=== PATIENT | female | born 1960 | race Caucasian/White ===

== ENCOUNTER 2020-09-12 14:48 | Observation (INO) | payer BC ==
[2020-09-12] MEDS ORDERED: Sodium Chloride 0.9% 10 ML Syringe FLUSH PRN ×2 (14:55→16:10)
[2020-09-12] MEDS ORDERED: Aspirin 81 MG Tab.Chew CHEW ONE (14:55)
[2020-09-12] MEDS ORDERED: Metoprolol Tartrate 5 MG/5 ML SDV IVPUSH ONE (14:55)
[2020-09-12] MEDS ORDERED: Famotidine 20 MG/2 ML SDV IVPUSH ONE (14:55)
[2020-09-12] MEDS ORDERED: Ticagrelor 90 MG Tab PO ONE (14:55)
--- NOTE | 2020-09-12 14:55 | EDM.PDOC ---
ED HPI GENERAL MEDICAL PROBLEM - General Chief Complaint: Chest Pain Stated Complaint: left arm pain, racing heart Time Seen by Provider: 09/12/20 14:54 Source of Information: Reports: Patient, Old Records ([facility] chart/EMR) History Limitations: Reports: No Limitations - History of Present Illness INITIAL COMMENTS - FREE TEXT/NARRATIVE: The patient drove herself to the emergency room for evaluation of nonspecific episode of heart flutter associated with some dyspnea and generalized nonspecific weakness with symptoms starting at about 2:15 PM today with similar type symptoms yesterday afternoon. Her symptoms lasted about 10-15 minutes on each occasion. The patient denies any chest pain/pressure, dizziness, orthostasis, orthopnea, diaphoresis, paresthesias, recent decreased exercise tolerance, or any other anginal-type symptoms. No recent history of abdominal pain, heartburn, nausea, diarrhea, melena, gross hematochezia, or any food intolerance, including fatty foods, etc. with normal bowel movement earlier this morning. She denies any gross hematuria, colic, or other UTI symptoms. The patient also denies any recent fever, cough, wheezing, dyspnea, etc.. She did have a negative COVID-19 screen on 09/09 with a repeat evaluation earlier today with these results still pending. She denies any specific pain or discomfort. Onset: Today, Sudden, Gradual Onset Date: 09/12/20 Onset Time: 14:15 Duration: Resolved Prior to Arrival Location: Reports: Upper Extremity, Left (Nonspecific weakness), Other (No pain). Denies: Head, Face, Neck, Chest, Abdomen, Back, Upper Extremity, Right, Radiates to Quality: Reports: Same as Previous Episode (Yesterday afternoon) Severity: Moderate Improves with: Reports: None Worsens with: Reports: None Associated Symptoms: Reports: Shortness of Breath, Weakness. 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 (see below) - Related Data Allergies Allergy/AdvReac Type Severity Reaction Status Date / Time No Known Allergies Allergy Verified 09/12/20 14:55 Home Meds: Home Meds Cyclobenzaprine [Flexeril] 10 mg PO TID PRN 12/09/13 [History] Sertraline [Zoloft] 50 mg PO DAILY 12/09/13 [History] atorvaSTATin [Lipitor] 20 mg PO BEDTIME 12/09/13 [History] Alendronate Sodium [Fosamax] 70 mg PO WEEKLY 09/12/20 [History] Cholecalciferol (Vitamin D3) [Vitamin D3] 1,000 unit PO DAILY 09/12/20 [History] Meloxicam 15 mg PO DAILY 09/12/20 [History] Omeprazole 20 mg PO DAILY 09/12/20 [History] Vitamin B Complex 1 each PO DAILY 09/12/20 [History] hydroCHLOROthiazide [Hydrochlorothiazide] 25 mg PO DAILY 09/12/20 [History] predniSONE [Prednisone] 20 mg PO DAILY 09/12/20 [History] Past Medical History HEENT History: Reports: Allergic Rhinitis, Impaired Vision, Sinusitis, Other (See Below). Denies: Cataract, Glaucoma, Hard of Hearing, Macular Degeneration, Otitis Media, Retinal Detachment Other HEENT History: Patient wears glasses. Cardiovascular History: Reports: High Cholesterol, Hypertension, Syncope, Other (See Below). Denies: Afib, Aneurysm, Arrhythmia, Blood Clots/VTE/DVT, CAD, Cardiomyopathy, Heart Failure, Heart Murmur, VA, PVD Other Cardiovascular History: Mild left ventricular hypertrophy and left atrial enlargement by echocardiogram as above. History of syncopal episodes x2 with borderline EEG indicative of possible metabolic encephalopathy with no history of true seizures, etc. Note negative work-up in 2010 as below. Respiratory History: Reports: None. Denies: Asthma, Bronchitis, Recurrent, COPD, Intubation, Difficult, Intubation, Previous, PE, Pneumonia, Recurrent, Pneumothorax, Sleep Apnea, TB Gastrointestinal History: Reports: GERD. Denies: Celiac Disease, Cholelithiasis, Chronic Constipation, Chronic Diarrhea, Colon Polyp, Fecal Incontinence, Gastritis, GI Bleed, Hepatitis, Inflammatory Bowel Disease, Irritable Bowel Syndrome, Jaundice, PUD Genitourinary History: Reports: None. Denies: Acute Renal Failure, Chronic Renal Insuffiency, Renal Calculus, Retention, Urinary, STD, Urinary Incontinence, UTI, Recurrent STEERER History: Reports: . Denies: Dysfunctional Uterine Bleeding, Endometriosis, Fibroids, Spontaneous : 3 Para: 3 LMP (Approximate): Other (See Below) Other STEERER History: Full term without complications during pregnancies or deliveries. Menopause at about age 55. Musculoskeletal History: Reports: Arthritis, Back Pain, Chronic, Fracture, Neck Pain, Chronic, Osteoarthritis, Osteoporosis, Other (See Below). Denies: Amputation, Gout, RA, SLE Other Musculoskeletal History: Possible incidental old right ulnar styloid fracture by x-ray, which the patient does not recall. Neurological History: Reports: Other (See Below). Denies: Cerebral Aneurysms, Concussion, CVA, Headaches, Chronic, Head Trauma, Migraines, MS, Neuropathy, Peripheral, Parkinson's, Seizure, TIA, Vertigo Other Neuro History: Borderline metabolic encephalopathy in 2011 with secondary syncope as above. Psychiatric History: Reports: Anxiety, Depression. Denies: Abuse, Victim of, ADD, ADHD, Addiction, Psych Hospitalization(s), PTSD, Suicide Attempt, Suicidal Ideation Endocrine/Metabolic History: Reports: Obesity/BMI 30+, Osteopenia, Osteoporosis, Other (See Below). Denies: Diabetes, Gestational, Diabetes, Type I, Diabetes, Type II, Diabetes Mellitus, Type 3c, Hypothyroidism, IDDM Other Endocrine/Metabolic History: History of thyroid nodules. Hematologic History: Reports: None. Denies: Anemia, Blood Transfusion(s), Iron Deficiency Immunologic History: Reports: None. Denies: AIDS, HIV, SLE Oncologic (Cancer) History: Reports: None. Denies: Basal Cell Carcinoma, Breast, Cervix, Colon, Hodgkin's Lymphoma, Leukemia, Lymphoma, Malignant Melanoma, Non-Hodgkin's Lymphoma, Ovarian, Squamous Cell Carcinoma, Thyroid, Uterine Dermatologic History: Reports: None. Denies: Eczema, Psoriasis - Infectious Disease History Infectious Disease History: Reports: Chicken Pox, Mumps. Denies: C-Difficile, Measles, Meningitis, Mononucleosis, MRSA, Novel Coronavirus, Pertussis (Whooping Cough), Rheumatic Fever, Rubella, Scarlet Fever, Shingles, TB, VRE - Past Surgical History Head Surgeries/Procedures: Reports: None HEENT Surgical History: Reports: Oral Surgery, Other (See Below). Denies: Adenoidectomy, Cataract Surgery, Eye Surgery, Laser Surgery, LASIK, Myringotomy w Tube(s), Naso-Sinus Surgery, Tonsillectomy Other HEENT Surgeries/Procedures: Dental extractions. Cardiovascular Surgical History: Reports: None. Denies: Varicose Respiratory Surgical History: Reports: None. Denies: Thoracentesis GI Surgical History: Reports: Colonoscopy, Other (See Below). Denies: Appendectomy, Cholecystectomy, EGD, Hernia, Abdominal, Hernia, Inguinal, Hernia Repair/Other, Polypectomy Other GI Surgeries/Procedures: Normal colonoscopy on 12/10/2013. Female Surgical History: Reports: None. Denies: Breast Biopsy, Section, D&C, Hysterectomy, Oophorectomy, Salpingo-Oophorectomy, Tubal Ligation Endocrine Surgical History: Reports: None. Denies: Thyroid Biopsy Neurological Surgical History: Reports: None. Denies: C-Spine, Discectomy, Intracranial, Laminectomy, Lumbar Spine, Sacral Spine, Scoliosis, Thoracic Spine, Vertebroplasty Musculoskeletal Surgical History: Reports: None. Denies: Arthroscopic Procedure, Carpal Tunnel, Ganglion Cyst, Joint Replacement, ORIF, Shoulder Surgery Oncologic Surgical History: Reports: None Dermatological Surgical History: Reports: None - Past Imaging History Past Imaging History: Reports: Cardiac Echo (05/25/2011 with ejection fraction of 72% and findings as above.), Carotid US (Normal on 05/02/2011.), CAT Scan (Soft tissue CT scan of the neck on 07/23/2014. CTA of the chest on 07/15/2014. CT of the head on 05/01/2011.), DEXA Scan (Last on 08/15/2020.), EEG (Borderline EEG on 05/02/2011 with findings as above.), Mammogram (Last on 08/15/2020.), Ultrasound (OB ultrasounds. Thyroid ultrasound on 07/23/2014.) Social & Family History - Family History HEENT: Reports: Glaucoma, Other (See Below). Denies: Macular Degeneration, Retinal Detachment Other HEENT Family History: Maternal grandmother and father with glaucoma. Cardiac: Reports: CAD, Hypertension, VA, Other (See Below). Denies: Afib, Aneurysm, Arrhythmia, Blood Clots/VTE/DVT, Bypass, Heart Failure, Heart Murmur, High Cholesterol, PVD/COD, Syncope Other Cardiac Family History: Mother with hypertension. Father with fatal VA in his 70s. Respiratory: Reports: Asthma, COPD, Other (See Below). Denies: PE, Pneumothorax, Sleep Apnea Other Respiratory Family Hisory: Paternal grandfather with COPD with history of tobacco use. Father with possible asthma. Sister with asthma. GI: Reports: Colon Polyps, Other (See Below). Denies: Celiac Disease, Cholelithiasis, GERD, GI bleed, Inflammatory Bowel Disease, Irritable Bowel Syndrome, PUD Other GI Family History: Father with colon cancer as below. : Reports: None. Denies: Renal Calculus, Renal Disease/Insufficiency OBGYN: Reports: None. Denies: Endometriosis, Recurrent Spontaneous Musculoskeletal: Reports: None. Denies: Arthritis, Gout, Osteoarthritis, RA, SLE Neurological: Reports: Parkinson's, Other (See Below). Denies: Alzheimers Disease, Cerebral Aneurysms, CVA, Dementia, Migraines, MS, Seizure, TIA Other Neurological Family History: Father with Parkinson's disease. Psychiatric: Reports: None. Denies: Abuse, Victim of, ADD, ADHD, Anxiety, Depression, Psych Hospitalization(s), PTSD, Suicide Attempt Endocrine/Metabolic: Reports: None. Denies: Diabetes, Gestational, Diabetes, Type I, Diabetes, type II, Diabetes Mellitus, Type 3c, Hypothyroidism, IDDM Hematologic: Reports: None. Denies: Anemia, SLE Immunologic: Reports: None. Denies: AIDS, HIV, SLE Dermatologic: Reports: None. Denies: Eczema, Psoriasis Oncologic: Reports: Colon, Liver, Metastatic, Other (See Below). Denies: Breast, Cervix, Hodgkin's Lymphoma, Leukemia, Non-Hodgkin's Lymphoma, Ovarian, Skin, Uterine Other Oncologic Family History: Father with colon cancer in his 50s. Mother from metastatic cholangioadenocarcinoma of the hepatic ducts at about age 78. - Tobacco Use Tobacco Use Status *Q: Never Tobacco User Tobacco Use Within Last Twelve Months: No Used Tobacco, but Quit: No Smoking Cessation Information Provided To Patient: No Second Hand Smoke Exposure: No Second Hand Smoke Education Provided: No - Caffeine Use Caffeine Use: Reports: Soda (2 sodas per week). Denies: Coffee, Energy Drinks, Tea - Alcohol Use Alcohol Use History: No Days Per Week of Alcohol Use: 0 Number of Drinks Per Day: 0 Number of Drinks Per Day Comment: No previous DWIs, problems with alcohol abuse, etc. Total Drinks Per Week: 0 Alcohol Use in Last Twelve Months: No - Recreational Drug Use Recreational Drug Use: No Drug Use in Last 12 Months: No Recreational Drug Type: Denies: Amphetamines (Speed), Cocaine, Heroin, Inhalants (Glues, Solvents, Aerosols), LSD (Acid), Marijuana/Hashish, Methamphetamine, Morphine, Oxycodone - Living Situation & Occupation Living situation: Reports: (Second with no children from this relationship.), (First with 3 children from that relationship), with Family () Occupation: Employed ([employer]) ED ROS GENERAL - Review of Systems Review Of Systems: Comprehensive ROS is negative, except as noted in HPI. ED EXAM, GENERAL - Physical Exam Exam: See Below Exam Limited By: No Limitations General Appearance: Alert, WD/WN, No Apparent Distress, Anxious (Mild) Eye Exam: Bilateral Eye: EOMI, Normal Inspection (Patient is wearing glasses. No vertigo or nystagmus.), PERRL Ears: Normal External Exam, Normal Canal, Hearing Grossly Normal, Normal TMs Nose: Normal Inspection, Normal Mucosa, No Blood Throat/Mouth: Normal Inspection, Normal Lips, Normal Teeth, Normal Gums, Normal Oropharynx, Normal Voice, No Airway Compromise. No: Dysphagia, Perioral Cyanosis Head: Atraumatic, Normocephalic. No: Facial Swelling, Facial Tenderness, Sinus Tenderness Neck: Normal Inspection, Supple, Non-Tender, Full Range of Motion. No: Carotid Bruit, Lymphadenopathy (L), Lymphadenopathy (R), Thyromegaly Respiratory/Chest: No Respiratory Distress, Lungs Clear, Normal Breath Sounds, No Accessory Muscle Use, Chest Non-Tender. No: Pleural Rub, Retractions Cardiovascular: Normal Peripheral Pulses, Regular Rate, Rhythm, No Edema, No Gallop, No JVD, No Murmur, No Rub. No: Gallop/S3, Gallop/S4, Friction Rub Peripheral Pulses: 2+: Radial (L), Radial (R), Dorsalis Pedis (L), Dorsalis Pedis (R) GI/Abdominal: Normal Bowel Sounds, Soft, Non-Tender, No Organomegaly, No Distention, No Abnormal Bruit, No Mass, Pelvis Stable, Other (Obese). No: Guarding (Female) Exam: Deferred Rectal (Female) Exam: Deferred Back Exam: Normal Inspection, Full Range of Motion. No: CVA Tenderness (L), CVA Tenderness (R), Muscle Spasm Extremities: Normal Inspection, Normal Range of Motion, Non-Tender, No Pedal Edema, Normal Capillary Refill. No: Gena's Sign Neurological: Alert, Oriented, CN II-XII Intact, Normal Cognition, Normal Gait, Normal Reflexes (Negative Babinski's), No Motor/Sensory Deficits Psychiatric: Anxious (Mild). No: Depressed Mood Skin Exam: Warm, Dry, Intact, Normal Color, No Rash. No: Diaphoretic, Wound/Incision Lymphatic: No Adenopathy #1 Interpretation EKG Date: 09/12/20 Time: 14:55 Rhythm: NSR Rate (Beats/Min): 92 [place]: Normal (Neutral) P-Wave: Present QRS: Normal (0.08 seconds) ST-T: Other (T wave inversion in lead aVL and V1 with nonspecific ST changes) QT: Normal AL/PQ Interval: 0.17 seconds with poor R wave progression in the anterior leads Comparison: NA - No Prior EKG EKG Interpretation Comments: 1. No acute ischemic changes Course - Vital Signs Last Recorded V/S: Last Vital Signs Temp 36.2 C 09/12/20 14:52 Pulse 83 09/12/20 15:45 Resp 18 09/12/20 15:45 BP 124/88 09/12/20 15:45 Pulse Ox 93 L 09/12/20 15:45 Vital Signs - 24 hr 09/12/20 09/12/20 09/12/20 14:52 15:06 15:12 Temperature [ 36.2 C Temporal] Pulse, 95 Peripheral Pulse, 96 92 Peripheral [ Pulse Oximetry] Respiratory 14 17 Rate Blood Pressure 142/88 H Blood Pressure 150/93 H 142/88 H [Right Upper Arm] O2 Sat by Pulse 95 93 L Oximetry 09/12/20 09/12/20 09/12/20 15:15 15:30 15:45 Temperature [ Temporal] Pulse, Peripheral Pulse, 78 81 83 Peripheral [ Pulse Oximetry] Respiratory 14 18 18 Rate Blood Pressure Blood Pressure 137/87 125/81 124/88 [Right Upper Arm] O2 Sat by Pulse 93 L 94 L 93 L Oximetry - Orders/Labs/Meds Orders: Active Orders 24 hr Category Date Time Status Cardiac Monitoring [RC] . DIRECTED Care 09/12/20 14:55 Active EKG Documentation Completion [RC] ASDIRECTED Care 09/12/20 14:55 Active Oxygen Therapy, ED [RC] PRN Care 09/12/20 14:55 Active Peripheral IV Care [RC] . DIRECTED Care 09/12/20 14:55 Active Pulse Oximetry [RC] CONTINUOUS Care 09/12/20 14:55 Active Up With Assistance [RC] PFP Care 09/12/20 14:55 Active Vital Signs [RC] PFP Care 09/12/20 14:55 Active Nothing per Oral Now Diet [DIET] Diet 09/12/20 Breakfast Active Chest 1V Frontal [CR] Stat Exams 09/12/20 14:55 Ordered Sodium Chloride 0.9% [Saline Flush] Med 09/12/20 14:55 Active 10 ml FLUSH ASDIRECTED PRN Obtain Past Medical Record [OM.PC] Urgent Oth 09/12/20 14:55 Active Peripheral IV Insertion Adult [OM.PC] Stat Oth 09/12/20 14:55 Ordered Resuscitation Status Stat Resus Stat 09/12/20 14:55 Ordered Medication Orders Sodium Chloride (Saline Flush) 10 ml FLUSH ASDIRECTED PRN PRN Reason: Keep Vein Open Last Admin: 09/12/20 15:14 Dose: 10 ml Documented by: MAEN Labs: Laboratory Tests 09/12/20 09/12/20 09/12/20 Range/Units 15:05 15:05 15:05 WBC 10.4 H (4.0-10.2) K/uL RBC 4.45 (3.77-5.09) M/uL Hgb 12.7 (11.7-15.5) g/dL Hct 38.5 (34.0-46.0) % MCV 86.5 (84.0-98.0) fL MCH 28.5 (28.2-33.3) pg MCHC 33.0 (31.7-36.0) g/dL RDW 13.3 (11.2-14.1) % Plt Count 333 (150-350) K/uL Neut % (Auto) 68.3 (45.0-80.0) % Lymph % (Auto) 19.7 (10.0-50.0) % Parker % (Auto) 8.4 (2.0-14.0) % Eos % (Auto) 3.0 (0.0-5.0) % Baso % (Auto) 0.6 (0.0-2.0) % Neut # (Auto) 7.08 H (1.40-7.00) K/uL Lymph # (Auto) 2.04 (0.50-3.50) K/uL Parker # (Auto) 0.87 (0.00-1.00) K/uL Eos # (Auto) 0.31 (0.00-0.50) K/uL Baso # (Auto) 0.06 (0.00-0.20) K/uL PT 10.0 (9.5-12.0) SEC INR 1.0 APTT 26.1 (24.5-32.8) SEC D-Dimer, Quantitative 526 H (0-400) ng/mL Sodium (136-145) mmol/L Potassium (3.5-5.1) mmol/L Chloride (98-107) mmol/L Carbon Dioxide (21.0-32.0) mmol/L BUN (7-18) mg/dL Creatinine (0.51-1.17) mg/dL Est Cr Clr Drug Dosing mL/min Estimated GFR (MDRD) mL/min Glucose (74-106) mg/dL Lactic Acid (0.4-2.0) mmol/L Uric Acid (2.6-7.2) mg/dL Calcium (8.5-10.1) mg/dL Magnesium (1.8-2.4) mg/dL Total Bilirubin (0.2-1.0) mg/dL AST (15-37) U/L ALT (12-78) U/L Alkaline Phosphatase (46-116) IU/L Creatine Kinase (26-308) U/L Creatine Kinase Index (0.0-2.5) % CK-MB (CK-2) (0.00-3.60) ng/mL Troponin I (0.000-0.056) ng/mL NT-Pro-B Natriuret Pep (0-125) pg/mL Total Protein (6.4-8.2) g/dL Albumin (3.4-5.0) g/dL TSH, Ultra Sensitive (0.358-3.740) mIU/mL 09/12/20 09/12/20 Range/Units 15:05 15:05 WBC (4.0-10.2) K/uL RBC (3.77-5.09) M/uL Hgb (11.7-15.5) g/dL Hct (34.0-46.0) % MCV (84.0-98.0) fL MCH (28.2-33.3) pg MCHC (31.7-36.0) g/dL RDW (11.2-14.1) % Plt Count (150-350) K/uL Neut % (Auto) (45.0-80.0) % Lymph % (Auto) (10.0-50.0) % Parker % (Auto) (2.0-14.0) % Eos % (Auto) (0.0-5.0) % Baso % (Auto) (0.0-2.0) % Neut # (Auto) (1.40-7.00) K/uL Lymph # (Auto) (0.50-3.50) K/uL Parker # (Auto) (0.00-1.00) K/uL Eos # (Auto) (0.00-0.50) K/uL Baso # (Auto) (0.00-0.20) K/uL PT (9.5-12.0) SEC INR APTT (24.5-32.8) SEC D-Dimer, Quantitative (0-400) ng/mL Sodium 137 (136-145) mmol/L Potassium 3.8 (3.5-5.1) mmol/L Chloride 100 (98-107) mmol/L Carbon Dioxide 29.5 (21.0-32.0) mmol/L BUN 30 H (7-18) mg/dL Creatinine 1.02 (0.51-1.17) mg/dL Est Cr Clr Drug Dosing 45.81 mL/min Estimated GFR (MDRD) 55 mL/min Glucose 101 (74-106) mg/dL Lactic Acid 1.1 (0.4-2.0) mmol/L Uric Acid 4.5 (2.6-7.2) mg/dL Calcium 9.2 (8.5-10.1) mg/dL Magnesium 1.8 (1.8-2.4) mg/dL Total Bilirubin 0.6 (0.2-1.0) mg/dL AST 20 (15-37) U/L ALT 32 (12-78) U/L Alkaline Phosphatase 79 (46-116) IU/L Creatine Kinase 92 (26-308) U/L Creatine Kinase Index 2.2 (0.0-2.5) % CK-MB (CK-2) 2.00 (0.00-3.60) ng/mL Troponin I 0.000 (0.000-0.056) ng/mL NT-Pro-B Natriuret Pep 58 (0-125) pg/mL Total Protein 7.4 (6.4-8.2) g/dL Albumin 3.9 (3.4-5.0) g/dL TSH, Ultra Sensitive 2.135 (0.358-3.740) mIU/mL Meds: Medications Generic Name Dose Route Start Last Admin Trade Name Freq PRN Reason Stop Dose Admin Sodium Chloride 10 ml 09/12/20 14:55 09/12/20 15:14 Saline Flush FLUSH 10 ml ASDIRECTED PRN Administration Keep Vein Open Discontinued Medications Generic Name Dose Route Start Last Admin Trade Name Freq PRN Reason Stop Dose Admin Aspirin 324 mg 09/12/20 14:55 09/12/20 15:11 Aspirin CHEW 09/12/20 14:56 324 mg ONETIME ONE Administration Famotidine 40 mg 09/12/20 14:55 09/12/20 15:14 Pepcid IVPUSH 09/12/20 14:56 40 mg ONETIME ONE Administration Metoprolol Tartrate 2.5 mg 09/12/20 14:55 09/12/20 15:12 Lopressor IVPUSH 09/12/20 14:56 2.5 mg ONETIME ONE Administration Ticagrelor 180 mg 09/12/20 14:55 09/12/20 15:10 Brilinta PO 09/12/20 14:56 180 mg ONETIME ONE Administration - Radiology Interpretation Free Text/Narrative:: night monitor shows normal sinus rhythm with heart rate in the 80s to 90s with no ectopy or arrhythmia. Chest x-ray, portable, shows a somewhat poor inspiratory film with moderately elevated right hemidiaphragm and mild cardiomegaly with, however no CHF, pulmonary infiltrates, pneumothorax, etc. Departure - Departure Time of Disposition: 16:05 Disposition: Refer to Observation Condition: Good Clinical Impression: Atypical chest pain, Mixed anxiety depressive disorder, D-dimer, elevated Hypertension Qualifiers: Hypertension type: essential hypertension Qualified Code(s): I10 - Essential (primary) hypertension Hyperlipidemia Qualifiers: Hyperlipidemia type: unspecified Qualified Code(s): E78.5 - Hyperlipidemia, unspecified Osteoarthritis Qualifiers: Osteoarthritis location: multiple joints Osteoarthritis type: primary Qualified Code(s): M89.49 - Other hypertrophic osteoarthropathy, multiple sites Sepsis Event Note (ED) - Focused Exam Vital Signs: Vital Signs Temp Pulse Pulse Resp BP BP Pulse Ox 09/12/20 15:45 83 18 124/88 93 L 09/12/20 15:30 81 18 125/81 94 L 09/12/20 15:15 78 14 137/87 93 L 09/12/20 15:12 95 142/88 H 09/12/20 15:06 92 17 142/88 H 93 L 09/12/20 14:52 36.2 C 96 14 150/93 H 95 - Problem List & Annotations (1) Atypical chest pain SNOMED Code(s): 400534806 Code(s): R07.89 - OTHER CHEST PAIN Status: Acute Priority: High Current Visit: Yes Onset Date: 09/11/20 Annotation/Comment:: Recurrent atypical type of cardiac type symptoms with chest pain protocol initiated immediately upon patient's arrival to the emergency room. She is also suffering from chronic fatigue, however denies recent decreased exercise tolerance. Note negative COVID-19 evaluations to this point. Her TSH is normal. Initiate standard rule out VA orders with cardiology consultation depending on her clinical course. Patient should be scheduled for a Cardiolite stress test FAYE with activity restrictions until her cardiac status has been determined. (2) D-dimer, elevated SNOMED Code(s): 739519483 Code(s): R79.89 - OTHER SPECIFIED ABNORMAL FINDINGS OF BLOOD CHEMISTRY Status: Acute Priority: High Current Visit: Yes Onset Date: 09/12/20 Annotation/Comment:: Venous Doppler studies to be conducted in this facility [facility]. D-dimer is less than 1000 with no clinical evidence of PE, however consider CTA of the chest depending on her clinical course. Subcutaneous Lovenox for now. (3) Hyperlipidemia SNOMED Code(s): 69227270 Code(s): E78.5 - HYPERLIPIDEMIA, UNSPECIFIED Status: Chronic Priority: Medium Current Visit: Yes Annotation/Comment:: Lipid panel and glycosylated hemoglobin in the a.m. Qualifiers: Hyperlipidemia type: unspecified Qualified Code(s): E78.5 - Hyperlipidemia, unspecified (4) Hypertension SNOMED Code(s): 81865787 Code(s): I10 - ESSENTIAL (PRIMARY) HYPERTENSION Status: Chronic Priority: Medium Current Visit: Yes Annotation/Comment:: Blood pressure somewhat elevated in the emergency room. Mild anxious affect. Continue to observe closely during this hospitalization with medication adjustment depending on her clinical course. Qualifiers: Hypertension type: essential hypertension Qualified Code(s): I10 - Essential (primary) hypertension (5) Mixed anxiety depressive disorder SNOMED Code(s): 541563060 Code(s): F41.8 - OTHER SPECIFIED ANXIETY DISORDERS Status: Chronic Priority: Medium Current Visit: Yes Annotation/Comment:: Moderate control based on today's exam. Continue to observe closely by her regular providers. (6) Osteoarthritis SNOMED Code(s): 266483101 Code(s): M19.90 - UNSPECIFIED OSTEOARTHRITIS, UNSPECIFIED SITE Status: Chronic Priority: Medium Current Visit: Yes Annotation/Comment:: Stable by patient history Qualifiers: Osteoarthritis location: multiple joints Osteoarthritis type: primary Qualified Code(s): M89.49 - Other hypertrophic osteoarthropathy, multiple sites - Problem List Review Problem List Initiated/Reviewed/Updated: Yes - My Orders Last 24 Hours: My Active Orders 09/12/20 Breakfast Nothing per Oral Now Diet [DIET] 09/12/20 14:55 Cardiac Monitoring [RC] . DIRECTED EKG Documentation Completion [RC] ASDIRECTED Oxygen Therapy, ED [RC] PRN Peripheral IV Care [RC] . DIRECTED Pulse Oximetry [RC] CONTINUOUS Up With Assistance [RC] PFP Vital Signs [RC] PFP Chest 1V Frontal [CR] Stat Sodium Chloride 0.9% [Saline Flush] 10 ml FLUSH ASDIRECTED PRN Obtain Past Medical Record [OM.PC] Urgent Peripheral IV Insertion Adult [OM.PC] Stat Resuscitation Status Stat - Assessment/Plan Admission H&P: Please use this note as an admission H&P Last 24 Hours: My Active Orders 09/12/20 Breakfast Nothing per Oral Now Diet [DIET] 09/12/20 14:55 Cardiac Monitoring [RC] . DIRECTED EKG Documentation Completion [RC] ASDIRECTED Oxygen Therapy, ED [RC] PRN Peripheral IV Care [RC] . DIRECTED Pulse Oximetry [RC] CONTINUOUS Up With Assistance [RC] PFP Vital Signs [RC] PFP Chest 1V Frontal [CR] Stat Sodium Chloride 0.9% [Saline Flush] 10 ml FLUSH ASDIRECTED PRN Obtain Past Medical Record [OM.PC] Urgent Peripheral IV Insertion Adult [OM.PC] Stat Resuscitation Status Stat Assessment:: As above Plan: As above. Extensive precautions were given to the patient, who is in agreement with the treatment plan. The patient's condition is stable enough for observation status and general supervision. [facility] physician assumes care in the a.m.
[2020-09-12 15:29] LABS: PTT,PARTIAL THROMBOPLSTIN TIME 26.1 SEC (24.5-32.8)
[2020-09-12] MEDS ORDERED: Temazepam 15 MG Cap PO PRN (16:10)
[2020-09-12] MEDS ORDERED: Acetaminophen 325 MG Tab PO PRN (17:00)
[2020-09-12] MEDS ORDERED: Enoxaparin 40 MG/0.4 ML Syringe SUBCUT SCH (18:00)
[2020-09-12] MEDS ORDERED: atorvaSTATin 10 MG Tab PO SCH (20:00)
[2020-09-13] MEDS ORDERED: Sertraline 50 MG Tab PO SCH (08:00)
[2020-09-13] MEDS ORDERED: Cholecalciferol (Vitamin D3) 25 MCG Tab PO SCH (08:00)
[2020-09-13] MEDS ORDERED: Hydrochlorothiazide 25 MG Tab PO SCH (08:00)
[2020-09-13] MEDS ORDERED: predniSONE 20 MG Tab PO SCH (08:00)
[2020-09-13] MEDS ORDERED: Omeprazole 20 MG Cap.CR PO SCH (08:00)
[2020-09-13 08:05] LABS: HEMOGLOBIN A1C 6.1 % (4.3-5.7)
[2020-09-13 08:33] LABS: CHLORIDE,CL 103 mmol/L (98-107); SODIUM,NA 140 mmol/L (136-145)
--- NOTE | 2020-09-13 09:16 | PCM.DCSUM1 ---
Discharge Summary - Hospital Course Free Text/Narrative:: Pt without complaint Venous doppler completed and negative for DVT Diagnosis: Stroke: No - Discharge Data Discharge Date: 09/13/20 Discharge Disposition: Home, Self-Care 01 Condition: Good - Referral to Home Health Primary Care Physician: Rebeka Ley PA-C - Discharge Diagnosis/Problem(s) (1) Atypical chest pain SNOMED Code(s): 650751772 ICD Code: R07.89 - OTHER CHEST PAIN Status: Acute Priority: High Current Visit: Yes Onset Date: 09/11/20 Problem Details: Recurrent atypical type of cardiac type symptoms with chest pain protocol initiated immediately upon patient's arrival to the emergency room. She is also suffering from chronic fatigue, however denies recent decreased exercise tolerance. Note negative COVID-19 evaluations to this point. Her TSH is normal. Initiate standard rule out [place] orders with cardiology consultation depending on her clinical course. Patient should be scheduled for a Cardiolite stress test FAYE with activity restrictions until her cardiac status has been determined. Pt currently asymptomatic (2) D-dimer, elevated SNOMED Code(s): 023127350 ICD Code: R79.89 - OTHER SPECIFIED ABNORMAL FINDINGS OF BLOOD CHEMISTRY Status: Acute Priority: High Current Visit: Yes Onset Date: 09/12/20 Problem Details: Venous Doppler studies to be conducted in this facility [facility]. D-dimer is less than 1000 with no clinical evidence of PE, however consider CTA of the chest depending on her clinical course. Subcutaneous Lovenox for now. Venous doppler completed and negative for DVT - Patient Instructions Diet: Regular Diet as Tolerated Activity: As Tolerated Notify Provider of: Increased Pain - Discharge Plan *PRESCRIPTION DRUG MONITORING PROGRAM REVIEWED*: Not Applicable *COPY OF PRESCRIPTION DRUG MONITORING REPORT IN PATIENT FAMILIA: Not Applicable Home Medications: Home Meds Cyclobenzaprine [Flexeril] 10 mg PO TID PRN 12/09/13 [History] Sertraline [Zoloft] 50 mg PO DAILY 12/09/13 [History] atorvaSTATin [Lipitor] 20 mg PO BEDTIME 12/09/13 [History] Alendronate Sodium [Fosamax] 70 mg PO WEEKLY 09/12/20 [History] Cholecalciferol (Vitamin D3) [Vitamin D3] 1,000 unit PO DAILY 09/12/20 [History] Meloxicam 15 mg PO DAILY 09/12/20 [History] Omeprazole 20 mg PO DAILY 09/12/20 [History] Vitamin B Complex 1 each PO DAILY 09/12/20 [History] hydroCHLOROthiazide [Hydrochlorothiazide] 25 mg PO DAILY 09/12/20 [History] predniSONE [Prednisone] 20 mg PO DAILY 09/12/20 [History] Oxygen Therapy Mode: Room Air Forms: ED Department Discharge Referrals: Rebeka Ley PA-C [Primary Care Provider] - - Discharge Summary/Plan Comment DC Time >30 min.: No Discharge Summary/Plan Comment: Follow up in clinic for recheck and to schedule stress test - Patient Data Vitals - Most Recent: Last Vital Signs Temp 97.6 F 09/13/20 04:00 Pulse 56 L 09/13/20 04:00 Resp 18 09/13/20 04:00 BP 152/92 H 09/13/20 04:00 Pulse Ox 96 09/13/20 04:00 Weight - Most Recent: 200 lb I&O - Last 24 hours: Intake & Output 09/12/20 09/13/20 09/13/20 18:59 02:59 10:59 Intake Total 50 0 Output Total 100 Balance 50 -100 Lab Results - Last 24 hrs: Laboratory Results - last 24 hr 09/12/20 09/12/20 09/12/20 Range/Units 15:05 15:05 15:05 WBC 10.4 H (4.0-10.2) K/uL RBC 4.45 (3.77-5.09) M/uL Hgb 12.7 (11.7-15.5) g/dL Hct 38.5 (34.0-46.0) % MCV 86.5 (84.0-98.0) fL MCH 28.5 (28.2-33.3) pg MCHC 33.0 (31.7-36.0) g/dL RDW 13.3 (11.2-14.1) % Plt Count 333 (150-350) K/uL Neut % (Auto) 68.3 (45.0-80.0) % Lymph % (Auto) 19.7 (10.0-50.0) % [place] % (Auto) 8.4 (2.0-14.0) % Eos % (Auto) 3.0 (0.0-5.0) % Baso % (Auto) 0.6 (0.0-2.0) % Neut # (Auto) 7.08 H (1.40-7.00) K/uL Lymph # (Auto) 2.04 (0.50-3.50) K/uL [place] # (Auto) 0.87 (0.00-1.00) K/uL Eos # (Auto) 0.31 (0.00-0.50) K/uL Baso # (Auto) 0.06 (0.00-0.20) K/uL PT 10.0 (9.5-12.0) SEC INR 1.0 APTT 26.1 (24.5-32.8) SEC D-Dimer, Quantitative 526 H (0-400) ng/mL Sodium (136-145) mmol/L Potassium (3.5-5.1) mmol/L Chloride (98-107) mmol/L Carbon Dioxide (21.0-32.0) mmol/L BUN (7-18) mg/dL Creatinine (0.51-1.17) mg/dL Est Cr Clr Drug Dosing mL/min Estimated GFR (MDRD) mL/min Glucose (74-106) mg/dL Hemoglobin A1c (4.3-5.7) % Lactic Acid (0.4-2.0) mmol/L Uric Acid (2.6-7.2) mg/dL Calcium (8.5-10.1) mg/dL Magnesium (1.8-2.4) mg/dL Total Bilirubin (0.2-1.0) mg/dL AST (15-37) U/L ALT (12-78) U/L Alkaline Phosphatase (46-116) IU/L Creatine Kinase (26-308) U/L Creatine Kinase Index (0.0-2.5) % CK-MB (CK-2) (0.00-3.60) ng/mL Troponin I (0.000-0.056) ng/mL NT-Pro-B Natriuret Pep (0-125) pg/mL Total Protein (6.4-8.2) g/dL Albumin (3.4-5.0) g/dL Triglycerides (30-150) mg/dL Cholesterol (100-200) mg/dL LDL Cholesterol, Calc (0-100) mg/dL HDL Cholesterol (40-60) mg/dL TSH, Ultra Sensitive (0.358-3.740) mIU/mL 09/12/20 09/12/20 09/12/20 Range/Units 15:05 15:05 20:38 WBC (4.0-10.2) K/uL RBC (3.77-5.09) M/uL Hgb (11.7-15.5) g/dL Hct (34.0-46.0) % MCV (84.0-98.0) fL MCH (28.2-33.3) pg MCHC (31.7-36.0) g/dL RDW (11.2-14.1) % Plt Count (150-350) K/uL Neut % (Auto) (45.0-80.0) % Lymph % (Auto) (10.0-50.0) % [place] % (Auto) (2.0-14.0) % Eos % (Auto) (0.0-5.0) % Baso % (Auto) (0.0-2.0) % Neut # (Auto) (1.40-7.00) K/uL Lymph # (Auto) (0.50-3.50) K/uL [place] # (Auto) (0.00-1.00) K/uL Eos # (Auto) (0.00-0.50) K/uL Baso # (Auto) (0.00-0.20) K/uL PT (9.5-12.0) SEC INR APTT (24.5-32.8) SEC D-Dimer, Quantitative (0-400) ng/mL Sodium 137 (136-145) mmol/L Potassium 3.8 (3.5-5.1) mmol/L Chloride 100 (98-107) mmol/L Carbon Dioxide 29.5 (21.0-32.0) mmol/L BUN 30 H (7-18) mg/dL Creatinine 1.02 (0.51-1.17) mg/dL Est Cr Clr Drug Dosing 45.81 mL/min Estimated GFR (MDRD) 55 mL/min Glucose 101 (74-106) mg/dL Hemoglobin A1c (4.3-5.7) % Lactic Acid 1.1 (0.4-2.0) mmol/L Uric Acid 4.5 (2.6-7.2) mg/dL Calcium 9.2 (8.5-10.1) mg/dL Magnesium 1.8 (1.8-2.4) mg/dL Total Bilirubin 0.6 (0.2-1.0) mg/dL AST 20 (15-37) U/L ALT 32 (12-78) U/L Alkaline Phosphatase 79 (46-116) IU/L Creatine Kinase 92 74 (26-308) U/L Creatine Kinase Index 2.2 2.0 (0.0-2.5) % CK-MB (CK-2) 2.00 1.50 (0.00-3.60) ng/mL Troponin I 0.000 0.000 (0.000-0.056) ng/mL NT-Pro-B Natriuret Pep 58 (0-125) pg/mL Total Protein 7.4 (6.4-8.2) g/dL Albumin 3.9 (3.4-5.0) g/dL Triglycerides (30-150) mg/dL Cholesterol (100-200) mg/dL LDL Cholesterol, Calc (0-100) mg/dL HDL Cholesterol (40-60) mg/dL TSH, Ultra Sensitive 2.135 (0.358-3.740) mIU/mL 09/13/20 09/13/20 09/13/20 Range/Units 07:32 07:32 07:32 WBC 7.1 (4.0-10.2) K/uL RBC 4.26 (3.77-5.09) M/uL Hgb 12.1 (11.7-15.5) g/dL Hct 37.1 (34.0-46.0) % MCV 87.1 (84.0-98.0) fL MCH 28.4 (28.2-33.3) pg MCHC 32.6 (31.7-36.0) g/dL RDW 13.5 (11.2-14.1) % Plt Count 307 (150-350) K/uL Neut % (Auto) 65.8 (45.0-80.0) % Lymph % (Auto) 19.2 (10.0-50.0) % [place] % (Auto) 9.9 (2.0-14.0) % Eos % (Auto) 4.7 (0.0-5.0) % Baso % (Auto) 0.4 (0.0-2.0) % Neut # (Auto) 4.67 (1.40-7.00) K/uL Lymph # (Auto) 1.36 (0.50-3.50) K/uL [place] # (Auto) 0.70 (0.00-1.00) K/uL Eos # (Auto) 0.33 (0.00-0.50) K/uL Baso # (Auto) 0.03 (0.00-0.20) K/uL PT (9.5-12.0) SEC INR APTT (24.5-32.8) SEC D-Dimer, Quantitative 582 H (0-400) ng/mL Sodium 140 (136-145) mmol/L Potassium 3.7 (3.5-5.1) mmol/L Chloride 103 (98-107) mmol/L Carbon Dioxide 29.3 (21.0-32.0) mmol/L BUN 30 H (7-18) mg/dL Creatinine 0.69 (0.51-1.17) mg/dL Est Cr Clr Drug Dosing 67.72 mL/min Estimated GFR (MDRD) > 60 mL/min Glucose 89 (74-106) mg/dL Hemoglobin A1c (4.3-5.7) % Lactic Acid (0.4-2.0) mmol/L Uric Acid (2.6-7.2) mg/dL Calcium 9.0 (8.5-10.1) mg/dL Magnesium (1.8-2.4) mg/dL Total Bilirubin 0.9 (0.2-1.0) mg/dL AST 23 (15-37) U/L ALT 29 (12-78) U/L Alkaline Phosphatase 70 (46-116) IU/L Creatine Kinase 55 (26-308) U/L Creatine Kinase Index 1.8 (0.0-2.5) % CK-MB (CK-2) 1.00 (0.00-3.60) ng/mL Troponin I 0.000 (0.000-0.056) ng/mL NT-Pro-B Natriuret Pep (0-125) pg/mL Total Protein 6.7 (6.4-8.2) g/dL Albumin 3.5 (3.4-5.0) g/dL Triglycerides 35 (30-150) mg/dL Cholesterol 151 (100-200) mg/dL LDL Cholesterol, Calc 66 (0-100) mg/dL HDL Cholesterol 78 H (40-60) mg/dL TSH, Ultra Sensitive (0.358-3.740) mIU/mL 09/13/20 Range/Units 07:32 WBC (4.0-10.2) K/uL RBC (3.77-5.09) M/uL Hgb (11.7-15.5) g/dL Hct (34.0-46.0) % MCV (84.0-98.0) fL MCH (28.2-33.3) pg MCHC (31.7-36.0) g/dL RDW (11.2-14.1) % Plt Count (150-350) K/uL Neut % (Auto) (45.0-80.0) % Lymph % (Auto) (10.0-50.0) % [place] % (Auto) (2.0-14.0) % Eos % (Auto) (0.0-5.0) % Baso % (Auto) (0.0-2.0) % Neut # (Auto) (1.40-7.00) K/uL Lymph # (Auto) (0.50-3.50) K/uL [place] # (Auto) (0.00-1.00) K/uL Eos # (Auto) (0.00-0.50) K/uL Baso # (Auto) (0.00-0.20) K/uL PT (9.5-12.0) SEC INR APTT (24.5-32.8) SEC D-Dimer, Quantitative (0-400) ng/mL Sodium (136-145) mmol/L Potassium (3.5-5.1) mmol/L Chloride (98-107) mmol/L Carbon Dioxide (21.0-32.0) mmol/L BUN (7-18) mg/dL Creatinine (0.51-1.17) mg/dL Est Cr Clr Drug Dosing mL/min Estimated GFR (MDRD) mL/min Glucose (74-106) mg/dL Hemoglobin A1c 6.1 H (4.3-5.7) % Lactic Acid (0.4-2.0) mmol/L Uric Acid (2.6-7.2) mg/dL Calcium (8.5-10.1) mg/dL Magnesium (1.8-2.4) mg/dL Total Bilirubin (0.2-1.0) mg/dL AST (15-37) U/L ALT (12-78) U/L Alkaline Phosphatase (46-116) IU/L Creatine Kinase (26-308) U/L Creatine Kinase Index (0.0-2.5) % CK-MB (CK-2) (0.00-3.60) ng/mL Troponin I (0.000-0.056) ng/mL NT-Pro-B Natriuret Pep (0-125) pg/mL Total Protein (6.4-8.2) g/dL Albumin (3.4-5.0) g/dL Triglycerides (30-150) mg/dL Cholesterol (100-200) mg/dL LDL Cholesterol, Calc (0-100) mg/dL HDL Cholesterol (40-60) mg/dL TSH, Ultra Sensitive (0.358-3.740) mIU/mL Med Orders - Current: Current Medications Acetaminophen (Tylenol) 650 mg PO Q4H PRN PRN Reason: Pain Atorvastatin Calcium (Lipitor) 20 mg PO BEDTIME [facility] Last Admin: 09/12/20 19:51 Dose: 20 mg Documented by: Cholecalciferol (Vitamin D3) 25 mcg PO DAILY [facility] Last Admin: 09/13/20 08:58 Dose: 25 mcg Documented by: Enoxaparin Sodium (Lovenox) 40 mg SUBCUT Q24H [facility] Last Admin: 09/12/20 17:14 Dose: 40 mg Documented by: Hydrochlorothiazide (Hydrochlorothiazide) 25 mg PO DAILY [facility] Last Admin: 09/13/20 08:58 Dose: 25 mg Documented by: Omeprazole (Omeprazole) 20 mg PO DAILY [facility] Last Admin: 09/13/20 08:58 Dose: 20 mg Documented by: Prednisone (Prednisone) 20 mg PO DAILY [facility] Last Admin: 09/13/20 08:58 Dose: 20 mg Documented by: Sertraline HCl (Zoloft) 50 mg PO DAILY [facility] Last Admin: 09/13/20 08:58 Dose: 50 mg Documented by: Sodium Chloride (Saline Flush) 10 ml FLUSH ASDIRECTED PRN PRN Reason: Keep Vein Open Last Admin: 09/12/20 15:14 Dose: 10 ml Documented by: Sodium Chloride (Saline Flush) 10 ml FLUSH Q12HR PRN PRN Reason: Keep Vein Open Temazepam (Restoril) 15 mg PO BEDTIME PRN PRN Reason: Insomnia Discontinued Medications Aspirin (Aspirin) 324 mg CHEW ONETIME ONE Stop: 09/12/20 14:56 Last Admin: 09/12/20 15:11 Dose: 324 mg Documented by: Famotidine (Pepcid) 40 mg IVPUSH ONETIME ONE Stop: 09/12/20 14:56 Last Admin: 09/12/20 15:14 Dose: 40 mg Documented by: Metoprolol Tartrate (Lopressor) 2.5 mg IVPUSH ONETIME ONE Stop: 09/12/20 14:56 Last Admin: 09/12/20 15:12 Dose: 2.5 mg Documented by: Ticagrelor (Brilinta) 180 mg PO ONETIME ONE Stop: 09/12/20 14:56 Last Admin: 09/12/20 15:10 Dose: 180 mg Documented by:
== END 2020-09-13 10:00 | disposition home or self-care (01) ==
LOC: LL.ED 14:48 → LL.MS 15:56
PROVIDERS: ADMIT Family Medicine; ATTEND Family Medicine
DX: R07.89 Other chest pain (principal); R79.89 Other specified abnormal findings of blood chemistry; E78.00 Pure hypercholesterolemia, unspecified; I10 Essential (primary) hypertension; K21.9 Gastro-esophageal reflux disease without esophagitis; E66.9 Obesity, unspecified; F41.8 Other specified anxiety disorders; M19.90 Unspecified osteoarthritis, unspecified site; Z79.899 Other long term (current) drug therapy; Z98.890 Other specified postprocedural states; Z90.49 Acquired absence of other specified parts of digestive tract
CPT/HCPCS: 36415; 71045; 80053; 80061; 82550; 82553; 83036; 83605; 83735; 83880; 84443; 84484; 84550; 85025; 85379; 85610; 85730; 93005; 93970; 96372; 96374; 96375; 99285-25; A9270-GY; G0378; J1650; J3490; J7512

== ENCOUNTER 2022-01-25 11:54 | Day surgery (SDC) | payer OTHER ==
[~2022-01-25 11:54] MED LIST: Lactated Ringers 1,000 ML IV SCH; Midazolam 1 MG/ML 2 ML SDV ONE; Propofol 200 MG/20 ML SDV ONE; Sodium Chloride 0.9% 10 ML Syringe FLUSH PRN
[2022-01-25] MEDS ORDERED: Midazolam 1 MG/ML 2 ML SDV ONE (12:33)
[2022-01-25] MEDS ORDERED: Propofol 200 MG/20 ML SDV ONE (12:33)
[2022-01-25] MEDS ORDERED: Glycopyrrolate 0.2 MG/ML SDV ONE (12:33)
== END 2022-01-25 14:00 | disposition home or self-care (01) ==
LOC: LL.SDS 11:54
PROVIDERS: ATTEND Surgery
DX: K31.7 Polyp of stomach and duodenum (principal); K21.9 Gastro-esophageal reflux disease without esophagitis; K42.9 Umbilical hernia without obstruction or gangrene; Z98.890 Other specified postprocedural states; Z79.899 Other long term (current) drug therapy; Z80.0 Family history of malignant neoplasm of digestive organs
CPT/HCPCS: 00731; J2250; J2704; J3490; J7120

== ENCOUNTER 2022-06-24 10:27 | Emergency (ER) | payer OTHER | END 2022-06-24 11:45 | disposition home or self-care (01) | LOC: SUPCPDRO 10:27 → LL.ED 10:27 | DX: S22.42XA Multiple fractures of ribs, left side, initial encounter for closed fracture (principal); E78.00 Pure hypercholesterolemia, unspecified; I10 Essential (primary) hypertension; E66.9 Obesity, unspecified; Z68.36 Body mass index [BMI] 36.0-36.9, adult; Z79.899 Other long term (current) drug therapy; W17.89XA Other fall from one level to another, initial encounter | CPT/HCPCS: 71101-LT; 99283; 99284 ==